=== PATIENT | female | born 1985 | race Hispanic/Latino ===

== ENCOUNTER 2017-07-14 02:35 | Emergency (ER) | payer OTHER, SELFPAY ==
[2017-07-14 02:54] LABS: Bilirubin Small (Negative); Blood, Urine Trace (Negative); Clarity CLOUDY (Clear); Glucose, Urine (Dipstick) Negative (Negative); Leukocyte Negative (Negative); Nitrite Negative (Negative); Pregnancy Test - Urine (BHCG) POSITIVE (Negative); Pregu Control Background? CLEAR/WHITE (CLR/WHITE); Pregu Control Bar Appear? YES (CONTROL BAR); Protein, Urine (Dipstick) Trace mg/dL (Neg-Trace); Specific Gravity 1.034 (1.002-1.036); Specific Gravity, Urine 1.034 (1.002-1.036); pH, Urine 5.5 (5.0-9.0)
[2017-07-14 02:56] LABS: Bacteria/HPF Rare-Few HPF (None Seen); Squamous Epithelial 21-50 HPF (0-3)
[2017-07-14 03:08] LABS: Hyaline Casts/LPF NONE SEEN LPF (0-3 Hyaline); Manual Microscopic Reviewed? No Path Casts Seen
[2017-07-14 06:32] LABS: #Basophils 0.1 thou/uL (0.0-0.2); #Eosinphils 0.6 thou/uL (0.0-0.7); #Lymphocytes 4.5 thou/uL (1.20-3.40); #Monocytes 0.9 thou/uL (0.11-0.59); #Neutrophils 7.9 thou/uL (1.40-6.50); %Basophils 0.8 % (0.0-1.0); %Eosinophils 4.2 % (0.0-10.0); %Lymphocytes 31.8 % (21.0-51.0); %Monocytes 6.7 % (0.0-10.0); %Neutrophils 56.4 % (42.0-75.0); Hemoglobin 13.7 g/dL (12.0-16.0); Mean Corpuscular HGB CONC 33.5 g/dL (32.0-36.0); Mean Corpuscular Hemoglobin 29.4 pg (27.0-31.0); Mean Corpuscular Volume 87.8 fl (81.0-99.0); Mean Platelet Volume 7.4 fL (7.4-10.4); Platelet Count 321 thou/uL (130-400); RBC Distribution Width 12.6 % (11.5-14.5); Red Blood Cell (RBC) Count 4.66 mill/uL (4.20-5.40); White Blood Cell (WBC) Count 14.1 thou/uL (4.8-10.8)
[2017-07-14 06:53] LABS: ALT (SGPT) 14 U/L (8-55); AST (SGOT) 10 U/L (5-34); Albumin 3.8 g/dL (3.5-5.0); Alkaline Phosphatase 106 U/L (40-150); Anion Gap 10 mmol/L (10-20); BUN (Urea Nitrogen) 9 mg/dL (7.0-18.7); Bilirubin, Total 0.4 mg/dL (0.2-1.2); Calc. Creatinine Clearance 0 mL/min (70-130); Calcium 9.1 mg/dL (7.8-10.44); Carbon Dioxide 25 mmol/L (22-29); Chloride 108 mmol/L (98-107); Estimated GFR-MDRD Greater than 90; Globulin 3.1 g/dL (2.4-3.5); Glucose 93 mg/dL (70-105); Potassium 3.7 mmol/L (3.5-5.1); Protein, Total 6.9 g/dL (6.0-8.3); Sodium 139 mmol/L (136-145)
--- NOTE | 2017-07-14 08:15 | ULT ---
PELVIC SONOGRAM TRANSABDOMINAL AND TRANSVAGINAL IMAGING WITH DUPLEX EVALUATION: Date: 07/14/17 HISTORY: Pelvic pain. HCG = 38.2. FINDINGS: Urinary bladder is decompressed. Uterus has a heterogeneous echotexture and is 10.5 cm. Endometrium 1 .0 cm without gestational sac apparent. Minimal free fluid within the cul-de-sac. Right ovary is 3.0 cm length and left is 2.8 cm. Each has a normal appearance with good color and spe ctral Doppler flow. IMPRESSION: No significant abnormalities demonstrated. Minimal free fluid. No sonographic evidence of intrauterin e gestation. Close continued clinical and sonographic follow-up regarding the possibility of pregnanc y is required. POS: [facility]
== END 2017-07-14 08:15 | disposition home or self-care (01) ==
LOC: ERS 02:35
DX: O20.0 Threatened abortion (principal); O99.89 Other specified diseases and conditions complicating pregnancy, childbirth and the puerperium; R10.2 Pelvic and perineal pain; Z3A.01 Less than 8 weeks gestation of pregnancy
CPT/HCPCS: 36415; 76856; 80053; 81003; 81015; 81025; 84702; 85025

== ENCOUNTER 2017-08-06 13:53 | Emergency (ER) | payer SELFPAY ==
[2017-08-06 14:46] LABS: #Basophils 0.1 thou/uL (0.0-0.2); #Eosinphils 0.1 thou/uL (0.0-0.7); #Lymphocytes 2.3 thou/uL (1.20-3.40); #Monocytes 0.6 thou/uL (0.11-0.59); #Neutrophils 10.5 thou/uL (1.40-6.50); %Basophils 0.5 % (0.0-1.0); %Eosinophils 0.8 % (0.0-10.0); %Monocytes 4.7 % (0.0-10.0); Hemoglobin 14.5 g/dL (12.0-16.0); Mean Corpuscular HGB CONC 33.2 g/dL (32.0-36.0); Mean Corpuscular Hemoglobin 29.4 pg (27.0-31.0); Mean Corpuscular Volume 88.5 fl (81.0-99.0); Mean Platelet Volume 7.6 fL (7.4-10.4); Platelet Count 318 thou/uL (130-400); RBC Distribution Width 12.7 % (11.5-14.5); Red Blood Cell (RBC) Count 4.93 mill/uL (4.20-5.40); White Blood Cell (WBC) Count 13.6 thou/uL (4.8-10.8)
[2017-08-06 16:21] LABS: Bilirubin Small (Negative); Blood, Urine Large (Negative); Clarity CLEAR (Clear); Glucose, Urine (Dipstick) Negative (Negative); Leukocyte Small (Negative); Nitrite Negative (Negative); Protein, Urine (Dipstick) Trace mg/dL (Neg-Trace); Specific Gravity, Urine 1.029 (1.002-1.036); Urobilinogen 0.2 mg/dL (0.2-1.0)
[2017-08-06 16:24] LABS: Bacteria/HPF Rare-Few HPF (None Seen); Hyaline Casts/LPF 4-6 HYALINE CAST LPF (0-3 Hyaline); Pathc Cast-AUWi Flag 1.16 (0-2.49)
[2017-08-06 16:36] LABS: RBC/HPF 0-3 HPF (0-3)
--- NOTE | 2017-08-06 17:29 | ULT ---
PELVIC ULTRASOUND: 08/06/17 COMPARISON: 07/14/17 TECHNIQUE: Transabdominal imaging of the pelvis is performed. Ovaries are interrogated with yao scale, color fl ow, doppler imaging with spectral waveform analysis. FINDINGS: Uterus is identified, measuring 11.5 x 5.8 x 6.2 cm. There are no myometrial masses. Within the endom etrium, there is a gestational sac. Within the gestational sac is a yolk sac and pole. No subch orionic hemorrhage. There are heart tones with a rate of 144 beats per minute. Wendell-rump length is 0.88 cm which corresponds to a gestational age of 6 weeks, 6 days. Left ovary has a normal echotexture measuring 1.7 x 2.6 x 1.9 cm. the right ovary has a normal echote xture measuring 1.9 x 3.1 x 2.6 cm. There is no free fluid. OVARIAN DOPPLER: Vascular flow to both ovaries. IMPRESSION: Single intrauterine gestation with heart tones. Gestational age by crown-rump length is 6 weeks , 6 days. POS: [facility]
[2017-08-06] MEDS ORDERED: Ketorolac Tromethamine 30 MG/ML VIAL ONE (19:49)
[2017-08-08 12:26] LABS: Chlamydia by PCR Not Detected (NotDetected); GC by PCR Not Detected (NotDetected)
== END 2017-08-06 20:00 | disposition home or self-care (01) ==
LOC: ERS 13:53
DX: O20.0 Threatened abortion (principal); Z3A.01 Less than 8 weeks gestation of pregnancy
CPT/HCPCS: 36415; 76856; 81003; 81015; 84702; 85025; 86900; 86901; 87086; 87480; 87491; 87510; 87591; 87660; 93976; J1885

== ENCOUNTER 2018-08-11 23:47 | Emergency (ER) | payer SELFPAY ==
[2018-08-12 00:50] LABS: #Basophils 0.1 thou/uL (0.0-0.2); #Eosinphils 0.2 thou/uL (0.0-0.7); #Monocytes 0.9 thou/uL (0.11-0.59); #Neutrophils 9.1 thou/uL (1.40-6.50); %Basophils 0.5 % (0.0-1.0); %Eosinophils 1.7 % (0.0-10.0); %Lymphocytes 27.9 % (21.0-51.0); %Monocytes 6.4 % (0.0-10.0); %Neutrophils 63.5 % (42.0-75.0); Hemoglobin 13.6 g/dL (12.0-16.0); Mean Corpuscular HGB CONC 33.1 g/dL (32.0-36.0); Mean Corpuscular Hemoglobin 27.9 pg (27.0-31.0); Mean Corpuscular Volume 84.4 fL (78.0-98.0); Mean Platelet Volume 7.8 fL (7.4-10.4); Platelet Count 372 thou/uL (130-400); RBC Distribution Width 12.6 % (11.5-14.5); Red Blood Cell (RBC) Count 4.87 mill/uL (4.20-5.40); White Blood Cell (WBC) Count 14.3 thou/uL (4.8-10.8)
[2018-08-12 02:05] LABS: Bilirubin Small (Negative); Blood, Urine Large (Negative); Clarity CLEAR (Clear); Glucose, Urine (Dipstick) Negative (Negative); Leukocyte Small (Negative); Nitrite Negative (Negative); Protein, Urine (Dipstick) 300 mg/dL (Neg-Trace)
[2018-08-12 02:10] LABS: RBC/HPF GREATER THAN 50-TNTC HPF (0-3)
[2018-08-12 02:12] LABS: Pathc Cast-AUWi Flag 77.91 (0-2.49)
[2018-08-12 02:13] LABS: Specific Gravity, Urine 1.033 (1.002-1.036); pH, Urine 6.2 (5.0-9.0)
[2018-08-12 02:15] LABS: Bacteria/HPF Rare-Few HPF (None Seen); Hyaline Casts/LPF NONE SEEN LPF (0-3 Hyaline); Other Casts/LPF None Seen LPF (0-3 Hyaline)
--- NOTE | 2018-08-12 07:39 | ULT ---
PRELIMINARY REPORT/[facility]/EMERGENCY AFTER HOURS PROCEDURE: EXAM: US Duplex Artery and Vein of the Abdominal and/or Reproductive Organs, Complete EXAM DATE/TIME: 08/12/2018 12:41 AM CLINICAL HISTORY: 32 years old, female; Pain and signs and symptoms; Lmp or gestational age (in weeks): 06/03/18; antepar marcus complications; complicated by abdominal or pelvic pain; First trimester; ; Patient HX: Pelvic cramping pain with lower back pain, nausea, heavy vaginal bleeding w/clots x 1 day . TECHNIQUE: Imaging protocol: Real-time duplex ultrasound scan of the arterial and venous flow of the abdominal and/or reproductive organs with B-mode, color Doppler flow and spectral waveform analysis. Complete exam. COMPARISON: No relevant prior studies available. FINDINGS: The right ovary is normal in appearance with normal flow by color Doppler and spectral waveform shante sis of the arterial and venous flow. No ovarian mass or abnormal cysts. The right ovary measures 3.1 x 2.4 x 3.7 cm. The left ovary is normal in appearance with normal flow by color Doppler and spec tral waveform analysis of arterial and venous flow. No ovarian mass or abnormal cysts. The left ovary measures 2.3 x 2.4 x 1.4 cm. IMPRESSION: No evidence of ovarian torsion. CLINICAL HISTORY: 32 years old, female; Pain and signs and symptoms; Lmp or gestational age (in weeks): 06/03/18; Antepar marcus complications; complicated by abdominal or pelvic pain; First trimester; ; Patient HX: Pelvic cramping pain with lower back pain, nausea, heavy vaginal bleeding w/clots x 1 day TECHNIQUE: Imaging protocol: Real-time transabdominal obstetrical ultrasound of the maternal pelvis and a first trimester , less than 14 weeks 0 days, with image documentation. Transvaginal imaging was used for better evaluation of the fetus and adnexa. COMPARISON: No relevant prior studies available. FINDINGS: GESTATION: Gestation: No evidence of a gestational sac. MATERNAL: Uterus: The uterus measures 10.1 x 4.4 x 4.8 cm. No uterine masses. The endometrium measures0.5 cm. Cervix: Normal appearance of the cervix. Right adnexa: The right ovary is normal in appearance with normal flow by color Doppler and spectral waveform analysis of the arterial and venous flow. No ovarian mass or abnormal cysts. The right ovary measures 3.1 x 2.4 x 3.7 cm. Left adnexa: The left ovary is normal in appearance with normal flow by color Doppler and spectral wa veform analysis of arterial and venous flow. No ovarian mass or abnormal cysts. The left ovary measures 2.3 x 2.4 x 1.4 cm. Intraperitoneal: No free pelvic fluid. IMPRESSION: 1. Normal pelvic ultrasound. 2. No evidence of an intrauterine or ectopic . 3. With provided history of positive corresponding to a 10 week and 0 day gestation based o n LMP of June 03 2018, and recent heavy vaginal bleeding, findings would be consistent with miscarriage without evidence of retained products of conception. Thank you for allowing us to participate in the care of your patient. Dictated and Authenticated by: Archana Harriosn MD 08/12/2018 1:53 AM Central Time ([place] & [place]) FINAL REPORT: US Pelvic Transvag W Doppler: History: Vaginal bleeding. Comparison: Pelvic ultrasound 2017. Findings: Real-time grayscale, color, and spectral analysis of the pelvis performed transabdominal and transvag inal approach. Impression: Findings and impression are concordant with the preliminary report. Transcribed Date/Time: 08/12/2018 8:42 AM
== END 2018-08-12 02:35 | disposition home or self-care (01) ==
LOC: ERS 23:47
DX: O20.0 Threatened abortion (principal); Z3A.01 Less than 8 weeks gestation of pregnancy
CPT/HCPCS: 36415; 76856; 81003; 81015; 84702; 85025; 86900; 86901; 87086

== ENCOUNTER 2020-02-13 23:04 | Emergency (ER) | payer SELFPAY ==
--- NOTE | 2020-02-14 07:48 | RAD ---
XR Chest 1 View Portable History: Shortness of breath Comparison: None. Findings: Mild peripheral and perihilar airspace opacities. No pneumothorax. No effusion. Cardiac tiffany houette and mediastinal contours are within normal limits. Impression: Commonly reported imaging findings of Covid-19 pneumonia.
[2020-02-14 12:20] LABS: SARS-CoV-2 by NAA DETECTED (NotDetected)
[2020-02-14 12:21] LABS: SARS-CoV-2 MS2 Positive; SARS-CoV-2 N Gene Positive; SARS-CoV-2 S Gene Positive; SARS-CoV-2 orf1ab Positive
== END 2020-02-14 01:20 | disposition home or self-care (01) ==
LOC: ERS 23:04
DX: U07.1 COVID-19 (principal)
CPT/HCPCS: 71045; 87635; U0003